=== PATIENT | female | born 2000 | race Hispanic/Latino ===

== ENCOUNTER 2024-05-24 19:16 | Emergency (ER) | payer SELFPAY ==
--- NOTE | 2024-05-25 22:20 | ED.GENMED ---
History of Present Illness
General
Chief Complaint: Breathing Problem
Source: patient
Exam Limitations: none
Time Seen by Provider: 05/24/24 21:20
Nursing documentation reviewed up to this point in time: agreed with
History of Present Illness
History of Present Illness:
Patient to ED for eval after possible TB exposure. States is in the [employer]. Recently tested pos for TB on routine screening. She was advised by her PCP to come to ED. SHe denies any fever/chills, recent illness. No SOB, cough. No
complaints.
Past History
Past History
ED Past Medical History: None
ED Past Surgical History: None
Social History
Tobacco: Non-smoker
Alcohol: None
Review of Systems
Review of Systems
Allergies reviewed?: Yes
All Other Systems: ROS reviewed and negative except as documented in HPI and ROS
Constitutional: Reports no symptoms
EENT: Reports no symptoms
Respiratory: Reports no symptoms
Cardiac: Reports no symptoms
ABD/GI: Reports no symptoms
: Reports no symptoms
Musculoskeletal: Reports no symptoms
Skin: Reports no symptoms
Neurological: Reports no symptoms
Psychiatric: Reports no symptoms
Phy Exam
General Physical Exam
General Presentation: well appearing and no apparent distress
General age: appears stated age
General Skin: warm and dry
General Habitus: normal
Cardiovascular Exam
Cardiovascular Exam: regular rate/rhythm
Pulmonary Exam
Pulmonary Exam: lungs clear, no respiratory distress and chest non tender
Musculoskeletal Exam
Musculoskeletal Exam: full ROM
Skin Exam
Skin Exam: normal color, warm/dry and no rash
Psychiatric Exam
Psychiatric Exam: normal mood/affect
Course
Orders/Labs/Results
Orders:
Orders
05/24/24 21:36
CR Chest - 2 Views Urgent
Comment:
Reason For Exam: TB exposure
Vital Signs
Initial and Last Documented VS:
Initial Vital Signs
Temp Pulse Resp Pulse Ox
98.1 F 61 18 99
05/24/24 19:25 05/24/24 19:25 05/24/24 19:25 05/24/24 19:25
Last Documented Vital Signs
Temp Pulse Resp Pulse Ox
98.1 F 83 18 100
05/24/24 19:25 05/24/24 22:23 05/24/24 22:23 05/24/24 22:23
*Radiology
Radiology exam reviewed: radiology read reviewed
*Pulse Oximetry
Patient hypoxic: no
*Critical Care Note
Total Time (30-74mins, 75-104mins- exclusive of procedures): Not Applicable
Update Note
Update Note:
Patien to ED after possible TB exposure. tested pos for TB during [employer] testing. She is asymptomatic. CXR NAD. she is discharged home and will followup with PCP
ED Attending Note
-
Portions of this chart may have been created with voice recognition software.� Occasional wrong word or��sound alike� substitutions may have occurred due to the inherent limitations of voice recognition software.
Discharge Plan
Departure
Patient Disposition: Home (Routine Discharge)
Date of Disposition: 05/24/24
Time of Disposition: 22:19
Patient with high blood pressure during this ER visit?: No
Condition: Good
Covid-19: Not Applicable
Discharge Problem:
Exposure to TB
Instructions: Tuberculosis (DC)
Referrals:
UNKNOWN - PT NOT,INTERVIEWE [Family Provider] -
Activity Restrictions/Additional Instructions:
No evidence of TB was found on your chest xray. You were provided with information about TB and transmission of TB. FOllow up with your family doctor as needed.
Interventions
Interventions:
*Risk Screen - Suicide Last Done: 05/24/24 19:25
*General Assessment Last Done: 05/24/24 19:25
*Neglect/Abuse Screening Last Done: 05/24/24 19:25
*ED COVID-19 Vaccine History Last Done: 05/24/24 19:25
*Nursing Disposition Last Done: 05/24/24 22:24
ED- Cardiac Assessment Last Done: 05/24/24 21:02
ED- Pulmonary Assessment Last Done: 05/24/24 21:02
Discharge Date and Time
Discharge Date/Time: 05/24/24 22:24
Print Language: SAMI
== END 2024-05-24 22:24 | disposition home or self-care (01) ==
LOC: EMR 19:16
PROVIDERS: EMERGENCY PHYSICIAN Emergency Medicine
DX: Z20.1 Contact with and (suspected) exposure to tuberculosis (principal)
CPT/HCPCS: 99283; 71046

== ENCOUNTER 2025-03-13 00:16 | Emergency (ER) | payer BC, OTHER, SELFPAY ==
[2025-03-13 00:19] VITALS: BP 118/76
[2025-03-13 00:39] LABS: % Basophils 0.6 % (0-2); % Eosinophils 1.9 % (0-6); % Immature Granulocytes 0.3 % (0-0.5); % Lymphocytes 36.3 % (20.5-51.1); % Monocytes 7.9 % (1.7-9.3); Absolute Eosinophils 0.1 10^3/uL (0-0.7); Absolute Lymphocytes 2.5 10^3/uL (1.2-3.4); Absolute Monocytes 0.5 10^3/uL (0.1-0.6); Absolute Neutrophils 3.6 10^3/uL (1.4-6.5); Hematocrit 37.7 % (37.0-47.0); Hemoglobin 13.3 g/dL (12.0-16.0); Mean Corp Hgb Conc. 35.3 g/dL (33.0-37.0); Mean Corpuscular Hgb 30.9 pg (27.0-31.0); Mean Corpuscular Volume 87.5 fL (81.0-99.0); Mean Platelet Volume 11.8 fL (7.4-10.4); Nucleated Red Blood Cells % 0 %; Platelet Count 254 10^3/uL (130-400); Red Blood Cell Count 4.31 10^6/uL (4.20-5.40); Red Cell Dist. Width 12.5 % (11.5-14.5); White Blood Cell Count 6.8 10^3/uL (4.8-10.8)
[2025-03-13 00:47] VITALS: BMI 27.2
[2025-03-13 00:52] LABS: ALT (SGPT) 15 U/L (0-35); AST (SGOT) 20 U/L (14-36); Albumin 4.6 g/dl (3.5-5.0); Alkaline Phosphatase 107 U/L (38-126); Blood Urea Nitrogen 11 mg/dl (7-17); Calcium 9.2 mg/dl (8.4-10.2); Carbon Dioxide 22 mmol/L (22-30); Chloride 109 mmol/L (98-107); Estimated Creatinine Clearance 109 ml/min; Glucose 127 mg/dl (70-99); Potassium 4.1 mmol/L (3.5-5.1); Sodium 138 mmol/L (135-145); Total Bilirubin 0.3 mg/dl (0.2-1.3); Total Protein 8.6 g/dl (6.3-8.2); eGFR > 60.00
--- NOTE | 2025-03-13 01:26 | ED.GENMED ---
History of Present Illness
General
Chief Complaint: Problems
Source: patient
Exam Limitations: none
Time Seen by Provider: 03/13/25 00:48
Nursing documentation reviewed up to this point in time: agreed with
History of Present Illness
History of Present Illness:
Patient states he had intrauterine insemination approx 4 weeks ago. States she had a pos test. HCG drawn on friday, states result was 35. Repeat HCG scheduled for Friday. Tonight she developed severe abdominal pain. She states it
feels like her menstrual cramps. No bleeding. BRought to ED by spouse.
Past History
Past History
ED Past Medical History: None
ED Past Surgical History: None
Social History
Tobacco: Non-smoker
Alcohol: None
Review of Systems
Review of Systems
Allergies reviewed?: Yes
All Other Systems: ROS reviewed and negative except as documented in HPI and ROS
Constitutional: Reports no symptoms
EENT: Reports no symptoms
Respiratory: Reports no symptoms
Cardiac: Reports no symptoms
ABD/GI: Reports abdominal pain (cramping)
: Reports other (abdominal cramping)
Skin: Reports no symptoms
Neurological: Reports no symptoms
Psychiatric: Reports no symptoms
Phy Exam
General Physical Exam
General Presentation: well appearing and no apparent distress
General age: appears stated age
General Skin: warm and dry
General Habitus: normal
Cardiovascular Exam
Cardiovascular Exam: regular rate/rhythm
Gastrointestinal Exam
Gastrointestinal Exam: soft, no organomegaly, no pulsatile mass, non distended and no cva tenderness
Musculoskeletal Exam
Musculoskeletal Exam: full ROM
Skin Exam
Skin Exam: normal color and warm/dry
Psychiatric Exam
Psychiatric Exam: normal mood/affect
Course
Orders/Labs/Results
Orders:
Orders
03/13/25 00:26
Type+Screen Urgent
Complete Blood Count/With Diff Urgent
Comprehensive Metabolic Panel Urgent
HCG, Beta Quantitative [Beta HCG Quantitative] Urgent
Is this a screen?: No
Abnormal Lab Results
03/13/25
00:26
MPV 11.8 H fL
(7.4-10.4)
Chloride 109 H mmol/L
(98-107)
Glucose 127 H mg/dl
(70-99)
Total Protein 8.6 H g/dl
(6.3-8.2)
03/13/25 00:26
03/13/25 00:26
Vital Signs
Initial and Last Documented VS:
Initial Vital Signs
Temp Pulse Resp BP Pulse Ox
98.1 F 82 20 118/76 100
03/13/25 00:19 03/13/25 00:19 03/13/25 00:19 03/13/25 00:19 03/13/25 00:19
Last Documented Vital Signs
Temp Pulse Resp BP Pulse Ox
98.1 F 78 20 118/76 98
03/13/25 00:19 03/13/25 02:44 03/13/25 02:00 03/13/25 00:19 03/13/25 02:30
Information
Weeks gestation: Weeks: (4)
Location: N/A
*Critical Care Note
Total Time (30-74mins, 75-104mins- exclusive of procedures): Not Applicable
Update Note
Update Note:
Patient to ED with complaint of lower abd. crampin. SHe had intrauterine insemination 3-4 weeks ago, followed by a pos test. HCG this past week was 35 according to patient. SHe is scheduled for repeat HCG on Friday. TOnight HCG 59.
NO vaginal bleeding. Will hold off on US at this point as visualization of embryo/sac unlikley at this early stage. She will follow up on Friday for her repeat =HCG level. Given instructions on s/s to return to ED and she is agreeable
ED Attending Note
-
Portions of this chart may have been created with voice recognition software.� Occasional wrong word or��sound alike� substitutions may have occurred due to the inherent limitations of voice recognition software.
Discharge Plan
Departure
Patient Disposition: Home (Routine Discharge)
Date of Disposition: 03/13/25
Time of Disposition: 02:36
Patient with high blood pressure during this ER visit?: No
Condition: Good
Covid-19: Not Applicable
Discharge Problem:
Abdominal cramping
Instructions: symptoms
Prescriptions:
No Action
estradiol
2 mg PO DAILY
progesterone
200 mg PO DAILY
Referrals:
Navya Gipson MD [Family Provider] -
Activity Restrictions/Additional Instructions:
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 return to the emergency department for any changes in/worsening of your symptoms.
Interventions
Interventions:
*Risk Screen - Suicide Last Done: 03/13/25 00:19
*General Assessment Last Done: 03/13/25 00:19
*Neglect/Abuse Screening Last Done: 03/13/25 00:19
*ED- Fall Risk Assessment Last Done: 03/13/25 00:19
*ED COVID-19 Vaccine History Last Done: 03/13/25 00:19
*Nursing Disposition Last Done: 03/13/25 02:44
ED-Female Genitourinary Assessment Last Done: 03/13/25 02:07
Discharge Date and Time
Discharge Date/Time: 03/13/25 02:45
Print Language: BURKINAN
[2025-03-13 02:29] LABS: Beta HCG Quantitative 59.41 mIU/ml
== END 2025-03-13 02:45 | disposition home or self-care (01) ==
LOC: EMR 00:16
PROVIDERS: Emergency Medicine; EMERGENCY PHYSICIAN Student in an Organized Health Care Education/Training Program; FAMILY PHYSICIAN Family Medicine
DX: O99.891 Other specified diseases and conditions complicating pregnancy (principal); R10.9 Unspecified abdominal pain
CPT/HCPCS: 99283; 80053; 84702; 85025; 86850; 86900; 86901